=== PATIENT | female | born 1930 | race Asian ===

== ENCOUNTER 2016-10-06 19:48 | Inpatient (IN) | payer OTHER, MEDICAID ==
[~2016-10-06] VITALS: Ht 152.4 cm; Wt 49.0 kg
[2016-10-06 19:48] VITALS: BP_SYST 156
[~2016-10-06 19:48] MED LIST: ACET325T53 GT; ALBU2.5V7 INH; CEL20 GT; CHOL100035 GT; DONE10TA44 GT; GUAI5SYR PO; IPRA4AER INH; LEVE500T13 GT; PANT40SU2 GT; SIMV10TA2 GT; TORBREX LEFT EYE
[2016-10-06] MEDS ORDERED: IPRATROPIUM/ALBUTEROL SULFATE 3 ML AMPUL.NEB INH ONE ×2 (20:15→21:30)
[2016-10-06] MEDS ORDERED: NACL 0.9% 1,000 ML IV ONE (20:15)
[2016-10-06] MEDS ORDERED: ACET-2165 GT (20:26)
[2016-10-06] MEDS ORDERED: MINE3.5O OP (20:26)
[2016-10-06] MEDS ORDERED: IPRA0.2S6 INH (20:26)
[2016-10-06] MEDS ORDERED: SIMV10TA6 GT (20:26)
[2016-10-06] MEDS ORDERED: PANT20TA2 GT (20:26)
[2016-10-06] MEDS ORDERED: MELA3TAB37 GT (20:26)
[2016-10-06] MEDS ORDERED: AMIN30LI2 GT (20:26)
[2016-10-06 20:40] LABS: BASOPHILS # (AUTO) 0.1 K/uL (0.0-0.2); BASOPHILS % (AUTO) 0.8 % (0.0-2.0); EOSINOPHILS # (AUTO) 0.1 K/uL (0.0-0.4); EOSINOPHILS % (AUTO) 0.9 % (0.0-4.0); HEMATOCRIT 37.3 % (36-48); LYMPHOCYTES # (AUTO) 1.9 K/uL (1.0-5.5); LYMPHOCYTES % (AUTO) 13.5 % (20.5-51.5); MEAN CORPUSCULAR HEMOGLOBIN 34 pg (27-31); MEAN CORPUSCULAR HGB CONC 35 % (32-36); MEAN CORPUSCULAR VOLUME 99 fL (79.0-98.0); MONOCYTES # (AUTO) 0.6 K/uL (0.0-1.0); MONOCYTES % (AUTO) 4.1 % (1.7-9.3); NEUTROPHILS # (AUTO) 11.7 K/uL (1.8-7.7); NEUTROPHILS % (AUTO) 80.7 % (40.0-70.0); PLATELET COUNT (AUTO) 259 K/uL (130-430); RED BLOOD CELL COUNT(AUTO) 3.78 MIL/uL (4.2-6.2); WHITE BLOOD COUNT (AUTO) 14.4 K/uL (4.8-10.8)
[2016-10-06 20:50] LABS: ANION GAP 5 (5-15); CHLORIDE 104 mmol/L (98-107); CREATININE 0.76 mg/dL (0.55-1.30); GLUCOSE 152 mg/dL (70-99); POTASSIUM 3.6 mmol/L (3.5-5.1); SODIUM SERUM 137 mmol/L (136-145); UREA NITROGEN, BLOOD 19 mg/dL (8-21)
[2016-10-06 20:52] LABS: PROTHROMBIN TIME 10.4 SECS (9.5-12.5)
[2016-10-06 20:55] LABS: ALANINE AMINOTRANSFERASE 26 U/L (12-78); ALBUMIN 3.4 g/dL (3.4-4.8); ASPARTATE AMINOTRANSFERASE 21 U/L (10-37); TOTAL BILIRUBIN 0.4 mg/dL (0.0-1.0); TOTAL PROTEIN, SERUM 8.5 g/dL (6.4-8.3)
[2016-10-06] MEDS ORDERED: PIPERACILLIN/TAZO 3.375 GM in NS 50 ML IV ONE (21:00)
[2016-10-06] MEDS ORDERED: methylPREDNISolone SOD SUCC/PF 62.5 MG/ML VIAL IVP ONE (21:00)
[2016-10-06 21:12] LABS: BILIRUBIN,URINE NEGATIVE (NEGATIVE); BLOOD, URINE 3+ (NEGATIVE); CLARITY/URINE CLEAR (CLEAR); COLOR,URINE YELLOW (YELLOW); GLUCOSE,URINE NEGATIVE (NEGATIVE); KETONES,URINE NEGATIVE (NEGATIVE); LEUKOCYTE ESTERASE ,URINE 1+ (NEGATIVE); NITRITE, URINE NEGATIVE (NEGATIVE); PH,URINE 6.5 (5.0-8.0); PROTEIN URINE NEGATIVE (NEGATIVE)
[2016-10-06] MEDS ORDERED: NACL 0.9% 1,500 ML IV ONE (21:15)
[2016-10-06 21:17] LABS: BACTERIA,URINE FEW /HPF (None Seen); RBC,URINE 20-50 /HPF (0-3)
[2016-10-06] MEDS ORDERED: PIPERACILLIN/TAZOBACTAM 3.375 GM/VIAL (ZOSYN) IV ONE ×2 (21:31→23:56)
[2016-10-06 22:07] LABS: ABG TOTAL HEMOGLOBIN 11.5 G/dL (12.0-18.0); BLOOD GAS BASE EXCESS 0.7 mmol/L (-3.0-3.0); BLOOD GAS PH 7.403 (7.350-7.450); BLOOD O2Hb% 95.4 % (94.0-97.0)
[2016-10-06 22:08] LABS: BLOOD GAS COHb% 0.3 % (0.5-1.5); BLOOD GAS HHB 4.2 % (0.0-6.0)
[2016-10-06 22:19] VITALS: BP_SYST 137
[2016-10-06] MEDS: POTASSIUM CHLORIDE 10 MEQ in NACL 0.9% 1,000 ML IV SCH (22:30)
[2016-10-06] MEDS: IPRATROPIUM BROM 0.5 MG/2.5 ML VIAL.NEB (ATROVENT) INH SCH (23:00)
[2016-10-06] MEDS: ALBUTEROL SULFATE 0.083% 2.5 MG/3 ML VIAL.NEB INH SCH (23:00)
[2016-10-06] MEDS: ACETAMINOPHEN 650 MG/20.3 ML UDC GT PRN (23:49)
[2016-10-07] VITALS (7 sets, daily range): BP systolic 106–141
[2016-10-07] MEDS ORDERED: levETIRAcetam 500 MG TABLET PO SCH (00:15)
[2016-10-07] MEDS ORDERED: KCL 20 mEq in 100 mL (PREMIX) 100 ML IV ONE (00:16)
[2016-10-07] MEDS: POTASSIUM CHLORIDE 10 MEQ in NACL 0.9% 1,000 ML IV SCH ×2 (00:21→11:39)
[2016-10-07] MEDS: PIPERACILLIN/TAZO 3.375/DEX-IS 50 ML IV SCH ×5 (06:00→23:27)
[2016-10-07] MEDS: methylPREDNISolone SOD SUCC/PF 62.5 MG/ML VIAL IVP SCH ×3 (06:21→23:28)
[2016-10-07 07:33] LABS: BASOPHILS % (AUTO) 0.2 % (0.0-2.0); EOSINOPHILS # (AUTO) 0.5 K/uL (0.0-0.4); EOSINOPHILS % (AUTO) 2.6 % (0.0-4.0); HEMATOCRIT 28.8 % (36-48); HEMOGLOBIN 10.4 g/dL (12.0-16.0); LYMPHOCYTES # (AUTO) 0.5 K/uL (1.0-5.5); LYMPHOCYTES % (AUTO) 2.5 % (20.5-51.5); MEAN CORPUSCULAR HEMOGLOBIN 36 pg (27-31); MEAN CORPUSCULAR HGB CONC 36 % (32-36); MEAN CORPUSCULAR VOLUME 99 fL (79.0-98.0); MONOCYTES # (AUTO) 0.2 K/uL (0.0-1.0); MONOCYTES % (AUTO) 0.9 % (1.7-9.3); NEUTROPHILS # (AUTO) 18.6 K/uL (1.8-7.7); NEUTROPHILS % (AUTO) 93.8 % (40.0-70.0); PLATELET COUNT (AUTO) 275 K/uL (130-430); RED BLOOD CELL COUNT(AUTO) 2.91 MIL/uL (4.2-6.2); RED CELL DISTRIBUTION WIDTH 11.5 % (9.0-15.0); WHITE BLOOD COUNT (AUTO) 19.8 K/uL (4.8-10.8)
[2016-10-07 07:40] LABS: ANION GAP 11 (5-15); CHLORIDE 106 mmol/L (98-107); CREATININE 0.83 mg/dL (0.55-1.30); GLUCOSE 264 mg/dL (70-99); POTASSIUM 4.1 mmol/L (3.5-5.1); SODIUM SERUM 138 mmol/L (136-145); UREA NITROGEN, BLOOD 16 mg/dL (8-21)
[2016-10-07] MEDS: IPRATROPIUM BROM 0.5 MG/2.5 ML VIAL.NEB (ATROVENT) INH SCH ×4 (07:50→21:02)
[2016-10-07] MEDS: ALBUTEROL SULFATE 0.083% 2.5 MG/3 ML VIAL.NEB INH SCH ×4 (08:11→21:01)
[2016-10-07] MEDS ORDERED: NON-FORMULARY MEDICATION (Pantoprazole (Protonix) 40 MG) GT SCH (09:00)
[2016-10-07] MEDS: CHOLECALCIFEROL (VITAMIN D3) 2,000 UNIT TABLET GT SCH (09:34)
[2016-10-07] MEDS: levETIRAcetam 500 MG TABLET GT SCH ×2 (09:34→21:00)
[2016-10-07] MEDS: DONEPEZIL HCL 5 MG TABLET (ARICEPT) GT SCH (09:34)
[2016-10-07] MEDS: PANTOPRAZOLE GRANULES PACKET 40 MG GT SCH (09:34)
[2016-10-07] MEDS: MINERAL OIL/PETROLATUM,WHITE 3.5 GM EYE OINT. OP SCH (09:35)
[2016-10-07] MEDS: 0.45% NACL 1,000 ML IV SCH (15:25)
[2016-10-07] MEDS: ACETAMINOPHEN 650 MG/20.3 ML UDC GT PRN ×2 (16:49→23:28)
[2016-10-07] MEDS: CITALOPRAM HYDROBROMIDE 20 MG TABLET GT SCH (20:59)
[2016-10-07] MEDS ORDERED: NON-FORMULARY MEDICATION (Melatonin 2 TAB) GT SCH (21:00)
[2016-10-07] MEDS: LACTOBACILLUS RHAMNOSUS GG 1 CAP CAPSULE PO SCH (21:00)
[2016-10-08] VITALS (7 sets, daily range): BP systolic 124–159
[2016-10-08] MEDS: ALBUTEROL SULFATE 0.083% 2.5 MG/3 ML VIAL.NEB INH SCH ×7 (03:06→22:50)
[2016-10-08] MEDS: IPRATROPIUM BROM 0.5 MG/2.5 ML VIAL.NEB (ATROVENT) INH SCH ×7 (03:07→22:50)
[2016-10-08] MEDS: PIPERACILLIN/TAZO 3.375/DEX-IS 50 ML IV SCH ×2 (05:40→11:24)
[2016-10-08] MEDS: methylPREDNISolone SOD SUCC/PF 62.5 MG/ML VIAL IVP SCH ×3 (06:11→21:39)
[2016-10-08 07:06] LABS: BASOPHILS % (AUTO) 0.1 % (0.0-2.0); HEMATOCRIT 29.6 % (36-48); HEMOGLOBIN 10.1 g/dL (12.0-16.0); LYMPHOCYTES # (AUTO) 0.5 K/uL (1.0-5.5); LYMPHOCYTES % (AUTO) 2.8 % (20.5-51.5); MEAN CORPUSCULAR HEMOGLOBIN 34 pg (27-31); MEAN CORPUSCULAR HGB CONC 34 % (32-36); MEAN CORPUSCULAR VOLUME 99 fL (79.0-98.0); MONOCYTES # (AUTO) 0.8 K/uL (0.0-1.0); MONOCYTES % (AUTO) 5.2 % (1.7-9.3); NEUTROPHILS # (AUTO) 14.9 K/uL (1.8-7.7); NEUTROPHILS % (AUTO) 91.9 % (40.0-70.0); PLATELET COUNT (AUTO) 203 K/uL (130-430); RED BLOOD CELL COUNT(AUTO) 2.99 MIL/uL (4.2-6.2); RED CELL DISTRIBUTION WIDTH 11.8 % (9.0-15.0); WHITE BLOOD COUNT (AUTO) 16.3 K/uL (4.8-10.8)
[2016-10-08 07:31] LABS: ALANINE AMINOTRANSFERASE 67 U/L (12-78); ALBUMIN 2.8 g/dL (3.4-4.8); ANION GAP 7 (5-15); ASPARTATE AMINOTRANSFERASE 95 U/L (10-37); CALCIUM 8.2 mg/dL (8.4-11.0); CHLORIDE 104 mmol/L (98-107); GLUCOSE 198 mg/dL (70-99); POTASSIUM 4.2 mmol/L (3.5-5.1); SODIUM SERUM 136 mmol/L (136-145); TOTAL BILIRUBIN 0.3 mg/dL (0.0-1.0); TOTAL PROTEIN, SERUM 7.2 g/dL (6.4-8.3); UREA NITROGEN, BLOOD 17 mg/dL (8-21)
[2016-10-08] MEDS: PANTOPRAZOLE GRANULES PACKET 40 MG GT SCH (08:59)
[2016-10-08] MEDS: LACTOBACILLUS RHAMNOSUS GG 1 CAP CAPSULE PO SCH ×2 (09:00→21:38)
[2016-10-08] MEDS: levETIRAcetam 500 MG TABLET GT SCH ×2 (09:00→21:38)
[2016-10-08] MEDS: DONEPEZIL HCL 5 MG TABLET (ARICEPT) GT SCH (09:00)
[2016-10-08] MEDS: CHOLECALCIFEROL (VITAMIN D3) 2,000 UNIT TABLET GT SCH (09:01)
[2016-10-08] MEDS: MINERAL OIL/PETROLATUM,WHITE 3.5 GM EYE OINT. OP SCH (09:01)
[2016-10-08] MEDS: metroNIDAZOLE 250 mg/NS 50 ML IV SCH ×2 (13:54→21:39)
[2016-10-08] MEDS ORDERED: FUROSEMIDE 20 MG/2 ML VIAL IVP ONE (15:15)
[2016-10-08] MEDS: 0.45% NACL 1,000 ML IV SCH (15:24)
[2016-10-08] MEDS: CITALOPRAM HYDROBROMIDE 20 MG TABLET GT SCH (21:38)
[2016-10-08] MEDS: CEFEPIME 1 GM in D5W 50 ML IV SCH (21:41)
[2016-10-09 03:46] VITALS: BP_SYST 141
[2016-10-09] MEDS: ALBUTEROL SULFATE 0.083% 2.5 MG/3 ML VIAL.NEB INH SCH ×6 (03:58→23:29)
[2016-10-09] MEDS: IPRATROPIUM BROM 0.5 MG/2.5 ML VIAL.NEB (ATROVENT) INH SCH ×6 (03:58→23:29)
[2016-10-09] MEDS: methylPREDNISolone SOD SUCC/PF 62.5 MG/ML VIAL IVP SCH ×3 (05:27→22:38)
[2016-10-09] MEDS: metroNIDAZOLE 250 mg/NS 50 ML IV SCH ×3 (05:28→22:39)
[2016-10-09 06:53] LABS: HEMATOCRIT 31.6 % (36-48); HEMOGLOBIN 11.1 g/dL (12.0-16.0); MEAN CORPUSCULAR HEMOGLOBIN 35 pg (27-31); MEAN CORPUSCULAR HGB CONC 35 % (32-36); MEAN CORPUSCULAR VOLUME 99 fL (79.0-98.0); PLATELET COUNT (AUTO) 205 K/uL (130-430); RED CELL DISTRIBUTION WIDTH 11.3 % (9.0-15.0); WHITE BLOOD COUNT (AUTO) 19.5 K/uL (4.8-10.8)
[2016-10-09 07:07] LABS: ANION GAP 7 (5-15); CALCIUM 8.4 mg/dL (8.4-11.0); CHLORIDE 98 mmol/L (98-107); CREATININE 0.65 mg/dL (0.55-1.30); GLUCOSE 216 mg/dL (70-99); POTASSIUM 4.1 mmol/L (3.5-5.1); SODIUM SERUM 136 mmol/L (136-145); UREA NITROGEN, BLOOD 17 mg/dL (8-21)
[2016-10-09 08:20] VITALS: BP_SYST 166
[2016-10-09] MEDS: PANTOPRAZOLE GRANULES PACKET 40 MG GT SCH (09:11)
[2016-10-09] MEDS: CEFEPIME 1 GM in D5W 50 ML IV SCH ×2 (09:11→22:39)
[2016-10-09] MEDS: DONEPEZIL HCL 5 MG TABLET (ARICEPT) GT SCH (09:12)
[2016-10-09] MEDS: LACTOBACILLUS RHAMNOSUS GG 1 CAP CAPSULE PO SCH ×2 (09:12→22:38)
[2016-10-09] MEDS: levETIRAcetam 500 MG TABLET GT SCH ×2 (09:12→22:38)
[2016-10-09] MEDS: CHOLECALCIFEROL (VITAMIN D3) 2,000 UNIT TABLET GT SCH (09:12)
[2016-10-09] MEDS: MINERAL OIL/PETROLATUM,WHITE 3.5 GM EYE OINT. OP SCH (09:13)
[2016-10-09 09:39] LABS: ATYPICAL LYMPHOCYTES % 0 % (0-0); BAND % (MANUAL) 17 % (0-6); BASOPHILS % (MANUAL) 0 % (0-2); EOSINOPHILS % (MANUAL) 0 % (0-7); LYMPHOCYTES % (MANUAL) 5 % (20-46); MONOCYTES % (MANUAL) 3 % (0-11)
[2016-10-09 11:27] VITALS: BP_SYST 144
[2016-10-09 15:34] VITALS: BP_SYST 141
[2016-10-09] MEDS ORDERED: FUROSEMIDE 20 MG/2 ML VIAL IVP ONE (17:30)
[2016-10-09 20:00] VITALS: BP_SYST 135
[2016-10-09] MEDS: CITALOPRAM HYDROBROMIDE 20 MG TABLET GT SCH (22:38)
[2016-10-10] VITALS (7 sets, daily range): BP systolic 127–157
[2016-10-10] MEDS: IPRATROPIUM BROM 0.5 MG/2.5 ML VIAL.NEB (ATROVENT) INH SCH ×6 (02:05→23:11)
[2016-10-10] MEDS: ALBUTEROL SULFATE 0.083% 2.5 MG/3 ML VIAL.NEB INH SCH ×6 (02:05→23:11)
[2016-10-10] MEDS: metroNIDAZOLE 250 mg/NS 50 ML IV SCH ×3 (05:22→21:49)
[2016-10-10] MEDS: methylPREDNISolone SOD SUCC/PF 62.5 MG/ML VIAL IVP SCH ×3 (05:22→21:49)
[2016-10-10 07:08] LABS: EOSINOPHILS % (AUTO) 0.1 % (0.0-4.0); HEMATOCRIT 33.8 % (36-48); HEMOGLOBIN 11.8 g/dL (12.0-16.0); LYMPHOCYTES # (AUTO) 0.5 K/uL (1.0-5.5); MEAN CORPUSCULAR HEMOGLOBIN 35 pg (27-31); MEAN CORPUSCULAR HGB CONC 35 % (32-36); MEAN CORPUSCULAR VOLUME 100 fL (79.0-98.0); MONOCYTES # (AUTO) 0.5 K/uL (0.0-1.0); MONOCYTES % (AUTO) 2.9 % (1.7-9.3); NEUTROPHILS # (AUTO) 16.3 K/uL (1.8-7.7); PLATELET COUNT (AUTO) 201 K/uL (130-430); RED CELL DISTRIBUTION WIDTH 11.4 % (9.0-15.0); WHITE BLOOD COUNT (AUTO) 17.3 K/uL (4.8-10.8)
[2016-10-10 07:21] LABS: ANION GAP 5 (5-15); CALCIUM 8.6 mg/dL (8.4-11.0); CHLORIDE 96 mmol/L (98-107); CREATININE 0.75 mg/dL (0.55-1.30); GLUCOSE 287 mg/dL (70-99); POTASSIUM 4.1 mmol/L (3.5-5.1); SODIUM SERUM 135 mmol/L (136-145); UREA NITROGEN, BLOOD 25 mg/dL (8-21)
[2016-10-10] MEDS: CEFEPIME 1 GM in D5W 50 ML IV SCH ×2 (09:10→21:09)
[2016-10-10] MEDS: levETIRAcetam 500 MG TABLET GT SCH ×2 (09:10→21:09)
[2016-10-10] MEDS: PANTOPRAZOLE GRANULES PACKET 40 MG GT SCH (09:10)
[2016-10-10] MEDS: LACTOBACILLUS RHAMNOSUS GG 1 CAP CAPSULE PO SCH ×2 (09:10→21:09)
[2016-10-10] MEDS: CHOLECALCIFEROL (VITAMIN D3) 2,000 UNIT TABLET GT SCH (09:10)
[2016-10-10] MEDS: DONEPEZIL HCL 5 MG TABLET (ARICEPT) GT SCH (09:10)
[2016-10-10] MEDS: MINERAL OIL/PETROLATUM,WHITE 3.5 GM EYE OINT. OP SCH (09:11)
[2016-10-10 10:30] LABS: ABG TOTAL HEMOGLOBIN 12.3 G/dL (12.0-18.0); BLOOD GAS BASE EXCESS 9.6 mmol/L (-3.0-3.0); BLOOD GAS PH 7.452 (7.350-7.450); BLOOD O2Hb% 96.2 % (94.0-97.0)
[2016-10-10 10:31] LABS: BLOOD GAS COHb% 0.3 % (0.5-1.5); BLOOD GAS HHB 3.2 % (0.0-6.0)
[2016-10-10] MEDS: CITALOPRAM HYDROBROMIDE 20 MG TABLET GT SCH (21:09)
[2016-10-11] VITALS: BP_SYST 151
[2016-10-11] MEDS: methylPREDNISolone SOD SUCC/PF 62.5 MG/ML VIAL IVP SCH ×3 (06:06→21:45)
[2016-10-11] MEDS: metroNIDAZOLE 250 mg/NS 50 ML IV SCH ×3 (06:07→21:46)
[2016-10-11] MEDS: IPRATROPIUM BROM 0.5 MG/2.5 ML VIAL.NEB (ATROVENT) INH SCH ×5 (07:17→23:00)
[2016-10-11] MEDS: ALBUTEROL SULFATE 0.083% 2.5 MG/3 ML VIAL.NEB INH SCH ×5 (07:17→23:00)
[2016-10-11 07:20] LABS: BASOPHILS % (AUTO) 0.3 % (0.0-2.0); HEMATOCRIT 32.4 % (36-48); HEMOGLOBIN 11.3 g/dL (12.0-16.0); LYMPHOCYTES # (AUTO) 0.6 K/uL (1.0-5.5); LYMPHOCYTES % (AUTO) 4.4 % (20.5-51.5); MEAN CORPUSCULAR HEMOGLOBIN 34 pg (27-31); MEAN CORPUSCULAR HGB CONC 35 % (32-36); MEAN CORPUSCULAR VOLUME 99 fL (79.0-98.0); MONOCYTES # (AUTO) 0.7 K/uL (0.0-1.0); MONOCYTES % (AUTO) 5.5 % (1.7-9.3); NEUTROPHILS # (AUTO) 11.6 K/uL (1.8-7.7); NEUTROPHILS % (AUTO) 89.8 % (40.0-70.0); PLATELET COUNT (AUTO) 214 K/uL (130-430); RED BLOOD CELL COUNT(AUTO) 3.29 MIL/uL (4.2-6.2); RED CELL DISTRIBUTION WIDTH 11.3 % (9.0-15.0); WHITE BLOOD COUNT (AUTO) 12.9 K/uL (4.8-10.8)
[2016-10-11 07:46] LABS: ANION GAP 0 (5-15); CALCIUM 8.4 mg/dL (8.4-11.0); CHLORIDE 99 mmol/L (98-107); CREATININE 0.74 mg/dL (0.55-1.30); GLUCOSE 328 mg/dL (70-99); POTASSIUM 4.7 mmol/L (3.5-5.1); SODIUM SERUM 137 mmol/L (136-145); UREA NITROGEN, BLOOD 27 mg/dL (8-21)
[2016-10-11 08:02] VITALS: BP_SYST 161
[2016-10-11] MEDS: LACTOBACILLUS RHAMNOSUS GG 1 CAP CAPSULE PO SCH ×2 (09:32→20:49)
[2016-10-11] MEDS: levETIRAcetam 500 MG TABLET GT SCH ×2 (09:32→20:49)
[2016-10-11] MEDS: CHOLECALCIFEROL (VITAMIN D3) 2,000 UNIT TABLET GT SCH (09:33)
[2016-10-11] MEDS: DONEPEZIL HCL 5 MG TABLET (ARICEPT) GT SCH (09:33)
[2016-10-11] MEDS: PANTOPRAZOLE GRANULES PACKET 40 MG GT SCH (09:33)
[2016-10-11] MEDS: CEFEPIME 1 GM in D5W 50 ML IV SCH ×2 (09:33→20:49)
[2016-10-11] MEDS: MINERAL OIL/PETROLATUM,WHITE 3.5 GM EYE OINT. OP SCH (09:33)
[2016-10-11 12:41] VITALS: BP_SYST 153
[2016-10-11] MEDS ORDERED: cloNIDine HCL 0.1 MG TABLET GT PRN (14:00)
[2016-10-11 16:57] VITALS: BP_SYST 155
[2016-10-11 19:30] VITALS: BP_SYST 150
[2016-10-11 19:39] VITALS: BP_SYST 150
[2016-10-11] MEDS: CITALOPRAM HYDROBROMIDE 20 MG TABLET GT SCH (20:49)
== END 2016-10-11 23:32 | DRG 871 ==
LOC: SED 19:48 → STU 21:53 → SMU 10-08 11:43
PROVIDERS: ADMIT Internal Medicine; ATTEND Internal Medicine
PROC: 5A09457 Assistance with Respiratory Ventilation, 24-96 Consecutive Hours, Continuous Positive Airway Pressure (ICD-10-PCS; principal; 2016-10-08)
DX: A41.9 Sepsis, unspecified organism (principal); J69.0 Pneumonitis due to inhalation of food and vomit; J44.1 Chronic obstructive pulmonary disease with (acute) exacerbation; N39.0 Urinary tract infection, site not specified; D64.9 Anemia, unspecified; G40.909 Epilepsy, unspecified, not intractable, without status epilepticus; G30.9 Alzheimer's disease, unspecified; F02.80 Dementia in other diseases classified elsewhere, unspecified severity, without behavioral disturbance, psychotic disturbance, mood disturbance, and anxiety; E78.5 Hyperlipidemia, unspecified; R13.10 Dysphagia, unspecified; T38.0X5A Adverse effect of glucocorticoids and synthetic analogues, initial encounter; Z87.01 Personal history of pneumonia (recurrent); Z87.440 Personal history of urinary (tract) infections; Z93.1 Gastrostomy status; Z86.73 Personal history of transient ischemic attack (TIA), and cerebral infarction without residual deficits; Z79.899 Other long term (current) drug therapy
CPT/HCPCS: 36415; 36600; 71010; 80048; 80053; 81000-TC; 82803-TC; 83605; 83880; 84484; 85007; 85025; 85027; 85610-TC; 85730-TC; 87040-TC; 87081; 87086; 93005; 94640; 94660; 94760; 96365; 96375; 99285; J0692; J1940; J2543; J2930; J3480; J3490; J7030; J7060

== ENCOUNTER 2017-01-17 01:29 | Inpatient (IN) | payer OTHER, MEDICAID ==
[2017-01-17] VITALS (8 sets, daily range): BP systolic 134–151
[~2017-01-17] VITALS: Ht 152.4 cm; Wt 50.8 kg
[~2017-01-17 01:29] MED LIST changes: -ALBU2.5V7 INH; -GUAI5SYR PO; -IPRA4AER INH; +MELA3TAB37 GT; +MINE3.5O OP; +PANT20TA2 GT; -SIMV10TA2 GT; -TORBREX LEFT EYE
--- NOTE | 2017-01-17 01:30 | NUR ---
Placed in room 2. Placed on cardiac exercise specialist, blood pressure machine and pulse oximeter. To gown for exam. Side rails up. Report given to Davida BARKER.
--- NOTE | 2017-01-17 01:35 | NUR ---
Patient brought to ER by ALS transport from [facility] with ALOC. Per facility last known time 01/16 @ 1800 although patient is non-verbal and bedridden, patient is more altered than before. Responds to painful stimuli, does not track with eyes, PERRL, non-verbal, G-tube present, patency not verified at this time, incontinent of feces & urine, mild upper & lower extremities atrophy. Sacral area reddness and healing wound. Tachycardic, tachypneic, febrile @ 100.8.
--- NOTE | 2017-01-17 01:44 | NUR ---
ER MD Rosales at bedside evaluatign the patient.
[2017-01-17] MEDS ORDERED: LACTIN GT (01:46)
[2017-01-17] MEDS ORDERED: IPRA3AMP9 INH (01:46)
[2017-01-17] MEDS ORDERED: CAT.1 GT (01:46)
[2017-01-17] MEDS ORDERED: IPRA4AER INH (01:46)
[2017-01-17] MEDS ORDERED: MAGN400O4 GT (01:46)
--- NOTE | 2017-01-17 01:46 | NUR ---
Medication reconciliation completed with information provided by - LIST FROM FACILITY. Any prior medication reconciliation on file was reviewed and corrected.
--- NOTE | 2017-01-17 02:00 | NUR ---
Irrigator Overhead at bedside for blood draw. Patient identified.
--- NOTE | 2017-01-17 02:10 | NUR ---
# 16 FR Zuniga catheter with use of sterile technique. Immediate return of 150 cc yellow urine noted. Bedside drainage bag placed below level of bladder. Urine sample collected and sent to lab. Pt tolerated procedure well. Patient unable to toilet self.
--- NOTE | 2017-01-17 02:20 | NUR ---
Radiology at bedside with portable for chest Xray
[2017-01-17 02:28] LABS: BASOPHILS # (AUTO) 0.1 K/uL (0.0-0.2); BASOPHILS % (AUTO) 0.5 % (0.0-2.0); EOSINOPHILS # (AUTO) 0.2 K/uL (0.0-0.4); EOSINOPHILS % (AUTO) 1.2 % (0.0-4.0); HEMATOCRIT 35.3 % (36-48); HEMOGLOBIN 11.7 g/dL (12.0-16.0); LYMPHOCYTES # (AUTO) 1.9 K/uL (1.0-5.5); LYMPHOCYTES % (AUTO) 13.4 % (20.5-51.5); MEAN CORPUSCULAR HEMOGLOBIN 32 pg (27-31); MEAN CORPUSCULAR HGB CONC 33 % (32-36); MEAN CORPUSCULAR VOLUME 97 fL (79.0-98.0); MONOCYTES # (AUTO) 1.3 K/uL (0.0-1.0); MONOCYTES % (AUTO) 9.1 % (1.7-9.3); NEUTROPHILS # (AUTO) 10.4 K/uL (1.8-7.7); NEUTROPHILS % (AUTO) 75.8 % (40.0-70.0); PLATELET COUNT (AUTO) 286 K/uL (130-430); RED BLOOD CELL COUNT(AUTO) 3.63 MIL/uL (4.2-6.2); RED CELL DISTRIBUTION WIDTH 11.5 % (9.0-15.0); WHITE BLOOD COUNT (AUTO) 13.9 K/uL (4.8-10.8)
[2017-01-17 02:36] LABS: BILIRUBIN,URINE NEGATIVE (NEGATIVE); BLOOD, URINE 1+ (NEGATIVE); CLARITY/URINE HAZY (CLEAR); COLOR,URINE YELLOW (YELLOW); GLUCOSE,URINE NEGATIVE (NEGATIVE); KETONES,URINE NEGATIVE (NEGATIVE); LEUKOCYTE ESTERASE ,URINE NEGATIVE (NEGATIVE); NITRITE, URINE NEGATIVE (NEGATIVE); PROTEIN URINE 2+ (NEGATIVE); UROBILINOGEN,URINE 0.2 (0.2-1.0)
[2017-01-17 02:38] LABS: ANION GAP 4 (5-15); CHLORIDE 107 mmol/L (98-107); CREATININE 0.92 mg/dL (0.55-1.30); GLUCOSE 156 mg/dL (70-99); POTASSIUM 3.9 mmol/L (3.5-5.1); SODIUM SERUM 143 mmol/L (136-145); UREA NITROGEN, BLOOD 33 mg/dL (8-21)
--- NOTE | 2017-01-17 02:40 | NUR ---
20G IV placed by EMT. Patency verified. Flushed with 10ml NS. Dressing clean & dry.
[2017-01-17 02:43] LABS: ALANINE AMINOTRANSFERASE 22 U/L (12-78); ASPARTATE AMINOTRANSFERASE 22 U/L (10-37); CREATINE KINASE, TOTAL 58 U/L (26-192); SALICYLATE 1 mg/dL (3-30); TOTAL BILIRUBIN 0.5 mg/dL (0.0-1.0); TOTAL PROTEIN, SERUM 8.6 g/dL (6.4-8.3)
[2017-01-17 02:44] LABS: ALCOHOL, BLOOD < 3 mg/dL (<10)
[2017-01-17 02:46] LABS: PROTHROMBIN TIME 10.8 SECS (9.5-12.5)
[2017-01-17 02:48] LABS: BACTERIA,URINE FEW /HPF (None Seen); MUCUS,URINE 1+ /LPF (None Seen); URINE AMORPHOUS URATE 2+ /HPF (None Seen)
[2017-01-17 02:53] LABS: BARBITURATE, URINE NEGATIVE (NEG <=200); BENZODIAZEPINE, URINE NEGATIVE (NEG <=150); CANNABINOID, URINE NEGATIVE (NEG <=50); COCAINE, URINE NEGATIVE (NEG <=150); METHAMPHETAMINES SCREEN,URINE NEGATIVE (NEG <=500); OPIATE, URINE NEGATIVE (NEG <=100); PHENCYCLIDINE SCREEN,URINE NEGATIVE (NEG <=25); UR TRICYCLIC ANTIDEPRESSANTS NEGATIVE (NEG <=300); URINE AMPHETAMINE NEGATIVE (NEG <=500); URINE METHADONE NEGATIVE (NEG <=200); URINE OXYCODONE SCREEN NEGATIVE (NEG <=100); URINE PROPOXYPHENE SCREEN NEGATIVE (NEG <=300)
[2017-01-17 02:57] LABS: ACETAMINOPHEN < 1 ug/mL (1-30)
--- NOTE | 2017-01-17 03:01 | NUR ---
Svere SEPSIS risk. ER MD Rosales aware of VS & presentation. No orders received fro ABD and fluids.
--- NOTE | 2017-01-17 03:03 | NUR ---
All belongings sent home with family.
--- NOTE | 2017-01-17 03:59 | NUR ---
Patient will be admitted to care of Dr Cedeño. Admitted to tele unit. Will go to room 121C. Belongings list completed. Summary report printed. Report will be given at bedside.
[2017-01-17] MEDS ORDERED: cefTRIAXone 1 GM in D5W 50 ML IV ONE (04:00)
[2017-01-17] MEDS ORDERED: cefTRIAXone 1 GM VIAL ONE (04:10)
--- NOTE | 2017-01-17 04:14 | NUR ---
Transfer to [address] via ACLS protocol. Licensed nurse present. IV present no signs or symptoms of infiltration.
--- NOTE | 2017-01-17 04:23 | NUR ---
ADMISSION: The patient, WILFREDO TERAN, 86 y/o, F admitted by VINCE GUERRA MD accompanied by family, was given written information regarding hospital policies, unit procedures and contact persons. Informed family that Iveth will be her nurse. Valuables were checked and signed.
--- NOTE | 2017-01-17 04:30 | NUR ---
INITIAL ADMISSION NOTE Patient resting on the bed with eyes closed. Patient is lethargic at this time. Responsive with deep stimuli. Skin warm and dry to touch. IV intact to left wrist, no redness, no swelling, patent. F/C intact, drain gravity with yellow urine. Daughter at bedside. Discussed with daughter the safety issue, use call light when need help, and plan of care, verbally understanding. Safety measure maintained. Bed in low position, side rails up, bed alarm on. Call light within reached. Will continue to monitor.
[2017-01-17] MEDS ORDERED: POTASSIUM CHLORIDE 10 MEQ in NACL 0.9% 1,000 ML IV SCH (05:30)
[2017-01-17] MEDS ORDERED: IPRATROPIUM/ALBUTEROL SULFATE 120 PUFFS/4 GM INH INH PRN (05:30)
[2017-01-17] MEDS ORDERED: cefTRIAXone 1 GM IVPB PREMIX 50 ML IV ONE (05:30)
[2017-01-17] MEDS ORDERED: ACETAMINOPHEN 650 MG/20.3 ML UDC GT PRN (05:30)
[2017-01-17] MEDS ORDERED: KCL 20 mEq in 100 mL (PREMIX) 100 ML IV ONE (06:02)
--- NOTE | 2017-01-17 06:58 | NUR ---
CLOSING NOTE Patient resting on the bed remained eyes closed. No acute distress. Respiration even and unlabored. Skin warm and dry to touch. IV intact to left wrist, no redness, no swelling, no drainage. On NS with KCL 10mEq at 75ml/hr, infusing well. GT intact, patent, no residual. HOB is elevated. No N/V or aspiration. F/C intact, drain gravity with yellow urine. No seizure activity noted. All needs met. Hourly rounding during shift. Family at bedside. Safety measure maintained. Call light within reached. Bed in low position, bed alarm on, padded side rails up. Will endorse to morning shift nurse.
--- NOTE | 2017-01-17 07:30 | NUR ---
AM ROUNDS PT SLEEPING. PT NON-VERBAL AT THIS TIME, PT DOES REACT TO STIMULI. GTF RUNNING WELL, FC DRAINING WELL VIA GRAVITY, IVF INFUSING WELL...PT HAVING A BREATHING TREATMENT AT THIS TIME...BOWEL SOUNDS HYPOACTIVE, AUDIBLE WHEEZING NOTED..DAUGHTER AT BEDSIDE...SEIZURE PRECAUTIONS IN PLACE...BED ALARM ACTIVATED...WILL CONT TO MONITOR
[2017-01-17] MEDS: IPRATROPIUM/ALBUTEROL SULFATE 3 ML AMPUL.NEB INH SCH ×2 (07:48→13:39)
[2017-01-17] MEDS: MINERAL OIL/PETROLATUM,WHITE 3.5 GM EYE OINT. OP SCH (09:00)
--- NOTE | 2017-01-17 09:22 | NUR ---
Nutrition Update Mir Scale 18 noted. Pt admitted for pneumonia. Diet: Fibersource HN at 50 ml/hr, Free Water Flush: 40 via GT BMI: 21.9 kg/m2 RD to follow per nutrition care standards.
[2017-01-17] MEDS: PANTOPRAZOLE GRANULES PACKET 40 MG GT SCH (11:04)
[2017-01-17] MEDS: levETIRAcetam 500 MG TABLET GT SCH ×2 (11:04→21:33)
[2017-01-17] MEDS ORDERED: NS 500 ML IV ONE (11:45)
--- NOTE | 2017-01-17 12:50 | NUR ---
BOLUS STARTED..WILL MONITOR
--- NOTE | 2017-01-17 14:21 | NUR ---
RESTING WITH EYES CLOSED. GOOD CHEST RISE/FALL...WILL CONT TO MONITOR
[2017-01-17] MEDS: LEVALBUTEROL HCL 0.63 MG/3 ML VIAL.NEB INH SCH ×2 (14:30→19:38)
[2017-01-17] MEDS ORDERED: cloNIDine HCL 0.1 MG TABLET GT PRN (15:00)
--- NOTE | 2017-01-17 15:54 | NUR ---
CARDIOLOGY CONSULT CALLED TO DR MARTINEZ, RE:TACHYCARDIA. SPOKE TO CHANDAN
[2017-01-17] MEDS ORDERED: FUROSEMIDE 20 MG/2 ML VIAL IVP ONE (18:15)
[2017-01-17] MEDS ORDERED: LEVALBUTEROL HCL 0.63 MG/3 ML VIAL.NEB INH PRN (18:30)
--- NOTE | 2017-01-17 19:21 | NUR ---
ROUNDS PT RESTING. NO CHANGES..DAUGHTER AT BEDSIDE...IV LASIX GIVEN BY COVERING NURSE...FC DRAINING WELL...WILL CONT TO JUAN
--- NOTE | 2017-01-17 19:40 | NUR ---
INITIAL NOTE Patient resting on the bed with eyes closed. Aroused when called her name. Respiration even and unlabored. No acute distress. Skin warm and dry to touch. SL intact to left wrist, no redness, no swelling, patent. GT intact, patent, no residual. On GT feeding of Fibersource HN at 50ml/hr, tolerated well. HOB elevated. F/C intact, drain gravity with yellow urine. Safety measure maintained. Bed in low position, bed alarm on, padded side rails up. Call light within reached. Will continue to monitor.
[2017-01-17] MEDS: cefTRIAXone 1 GM IVPB PREMIX 50 ML IV SCH (21:33)
[2017-01-17] MEDS: CITALOPRAM HYDROBROMIDE 20 MG TABLET GT SCH (21:33)
[2017-01-17] MEDS: DONEPEZIL HCL 5 MG TABLET (ARICEPT) GT SCH (21:33)
--- NOTE | 2017-01-17 21:36 | NUR ---
SCHEDULE MEDS GIVEN Patient resting on the bed with eyes closed. Respiration even and unlabored. No acute distress. Schedule meds given. Safety measure maintained. Daughter at bedside. Call light within reached. Continue to monitor.
--- NOTE | 2017-01-17 23:57 | NUR ---
ROUND Patient resting on the bed with eyes closed. No acute distress. Respiration even and unlabored. HOB elevated. Continue on GT feeding. F/C intact, drain gravity. Safety measure maintained. Bed in low position, bed alarm on, padded side rails up. Call light within reached. Continue to monitor.
[2017-01-18] MEDS: LEVALBUTEROL HCL 0.63 MG/3 ML VIAL.NEB INH SCH ×4 (00:16→20:21)
[2017-01-18 00:28] VITALS: BP_SYST 135
--- NOTE | 2017-01-18 02:50 | NUR ---
ROUND Patient sleeping comfortable. Respiration even and unlabored. No acute distress. HOB elevated. Continue on GT feeding of Fibersource HN at 50ml/hr, tolerated well. F/C intact, drain gravity. Family at bedside. Safety measure maintained. Bed in low position, bed alarm on, side rails up. Call light within reached. [place] to monitor.
[2017-01-18 04:00] VITALS: BP_SYST 137
--- NOTE | 2017-01-18 04:17 | NUR ---
ROUND Patient sleeping comfortable. Respiration even and unlabored. No acute distress. HOB elevated. Continue on GT feeding, tolerated well. F/C intact, drain gravity. Family at bedside. Safety measure maintained. Bed in low position, bed alarm on, side rails up. Call light within reached. Continue to monitor.
--- NOTE | 2017-01-18 05:20 | NUR ---
ROUND Patient remained sleeping. No acute distress. Respiration even and unlabored. HOB elevated. Continue on GT feeding. F/C intact, drain gravity. Safety measure maintained. Call light within reached. Bed in low position, bed alarm on, side rails up. Continue to monitor.
[2017-01-18 06:33] LABS: BASOPHILS # (AUTO) 0.1 K/uL (0.0-0.2); BASOPHILS % (AUTO) 0.4 % (0.0-2.0); EOSINOPHILS # (AUTO) 0.3 K/uL (0.0-0.4); HEMATOCRIT 33.4 % (36-48); HEMOGLOBIN 11.2 g/dL (12.0-16.0); LYMPHOCYTES # (AUTO) 1.2 K/uL (1.0-5.5); LYMPHOCYTES % (AUTO) 8.6 % (20.5-51.5); MEAN CORPUSCULAR HEMOGLOBIN 33 pg (27-31); MEAN CORPUSCULAR HGB CONC 34 % (32-36); MEAN CORPUSCULAR VOLUME 99 fL (79.0-98.0); MONOCYTES # (AUTO) 0.8 K/uL (0.0-1.0); NEUTROPHILS # (AUTO) 11.3 K/uL (1.8-7.7); PLATELET COUNT (AUTO) 250 K/uL (130-430); RED BLOOD CELL COUNT(AUTO) 3.39 MIL/uL (4.2-6.2); RED CELL DISTRIBUTION WIDTH 11.6 % (9.0-15.0); WHITE BLOOD COUNT (AUTO) 13.7 K/uL (4.8-10.8)
--- NOTE | 2017-01-18 06:52 | NUR ---
LOSING NOTE Patient resting on the bed with eyes closed. No acute distress. Respiration even and unlabored. Skin warm and dry to touch. IV intact to left wrist, no redness, no swelling. GT intact, patent, no residual. HOB elevated all the time. No N/V or aspiration noted. F/C intact, drain gravity with yellow urine. No seizure activity noted. All needs met. Hourly rounding during shift. Family at bedside. Safety measure maintained. Call light within reached. Bed in low position, bed alarm on, padded side rails up. Will endorse to morning shift nurse.
[2017-01-18 07:05] LABS: ALANINE AMINOTRANSFERASE 19 U/L (12-78); ALBUMIN 2.8 g/dL (3.4-4.8); ANION GAP 5 (5-15); ASPARTATE AMINOTRANSFERASE 18 U/L (10-37); CALCIUM 8.9 mg/dL (8.4-11.0); CHLORIDE 108 mmol/L (98-107); CREATININE 0.86 mg/dL (0.55-1.30); FREE T4 (FREE THYROXINE) 0.8 ng/dL (0.6-1.6); GLUCOSE 201 mg/dL (70-99); POTASSIUM 3.6 mmol/L (3.5-5.1); SODIUM SERUM 144 mmol/L (136-145); THYROID STIMULATING HORMONE 1.48 uIu/mL (0.34-4.82); TOTAL BILIRUBIN 0.3 mg/dL (0.0-1.0); TOTAL PROTEIN, SERUM 8.1 g/dL (6.4-8.3); UREA NITROGEN, BLOOD 26 mg/dL (8-21)
--- NOTE | 2017-01-18 07:30 | NUR ---
AM ROUNDS PT SLEEPING, AUDIBLE WHEEZING NOTED, HL TO LW FLUSHES WELL...GTF RUNNING WELL AND TOLERATING WELL...FC DRAINING WELL VIA GRAVITY...DAUGHTER AT BEDSIDE...WILL CONT TO MONITOR
[2017-01-18] MEDS ORDERED: DILTIAZEM HCL 120 MG CAP.SR.24H PO ONE (09:45)
[2017-01-18] MEDS: PANTOPRAZOLE GRANULES PACKET 40 MG GT SCH (10:03)
[2017-01-18] MEDS: ASPIRIN 81 MG TAB.CHEW JT SCH (10:03)
[2017-01-18] MEDS: levETIRAcetam 500 MG TABLET GT SCH ×2 (10:03→21:35)
--- NOTE | 2017-01-18 10:03 | NUR ---
NEUROLOGY CONSULT CALLED TO DR Ella ALCALA, RE: BHAVANI. LEFT Ilda VM TO [phone] Addendum: 01/18/17 at 1013 by Loretta Henson MT/ CALLED DR Ella ALCALA'S OFFICE AGAIN. SPOKE TO ANAIS RE: BHAVANI
[2017-01-18] MEDS: MINERAL OIL/PETROLATUM,WHITE 3.5 GM EYE OINT. OP SCH (10:09)
--- NOTE | 2017-01-18 10:42 | NUR ---
ROUNDS PT RESTING...NO CHANGES...NEW ORDER FOR BP MEDICATION GIVEN...WILL CONT TO MONITOR
[2017-01-18 10:55] VITALS: BP_SYST 182
--- NOTE | 2017-01-18 11:30 | NUR ---
ASSUMED CARE ASSUMED CARE OF PT D/T STAFFING CHANGES. RECEIVED REPORT FROM DELILAH CASTELAN. INSTRODUCED SELF TO PT AND FAMILY. WHITE BOARD UPDATED WITH MY CONTACT INFORMATION. FULL ASSESSMENT DONE. VSS. PT IS STABLE- NO ACUTE DISTRESS. POC DISCUSSED. ENCOURAGED PT AND FAMILY TO CALL ME WITH ANY NEEDS.
--- NOTE | 2017-01-18 12:16 | NUR ---
ENDORSED CARE TO MJ MEJIA
--- NOTE | 2017-01-18 13:00 | NUR ---
RN ROUNDS PT RESTING WITH EYES CLOSED, CHEST RISING AND FALLING. NO NONVERBAL INDICATION OF DISCOMFORT NOTED. SON EDY IS AT BESIDE. ENC TO CALL ME WITH ANY NEEDS
[2017-01-18 13:13] VITALS: BP_SYST 169
[2017-01-18 16:00] VITALS: BP_SYST 142
--- NOTE | 2017-01-18 16:40 | NUR ---
CONSTIPATION PT HAS NOT HAD BM X2 DAYS. ADMIN MOM ORDERED. PT TYLER WELL. DTR IS AT BEDSIDE. ENC TO CALL ME WITH ANY NEEDS
[2017-01-18] MEDS: MILK OF MAGNESIA 30 ML UDC GT PRN (16:41)
--- NOTE | 2017-01-18 18:50 | NUR ---
CLOSING NOTES PT RESTING IN BED. ALL NEEDS MET. HOURLY ROUNDS OBSERVED THROUGHOUT SHIFT. WILL ENDORSE REPORT TO NOC SHIFT NURSE.
--- NOTE | 2017-01-18 19:20 | NUR ---
CHANGE OF SHIFT: pt. unresponsive only to deep stimuli, non verbal, pt. came in for altered level of conciousness. not following any commands. warm to touch and pretty moist skin, will freshen up and cool pt. later. pt. daughter at bedside. IV lock on left hand. G tube feed with Fibersource @ 50 ml/hr.on cardiac cath technician and shows sinus tach. on room air, pulse ox reading @ 93 %. HOB elevated.
--- NOTE | 2017-01-18 21:00 | NUR ---
NOTES: complete bath given by ROSI Fernandez, repositioned pt. oral care and suctioned pt. , sounds slightly gurgly. checked g tube , no residual. with [place] cath to OSD. pt. afebrile. will continue to observe and monitor.
[2017-01-18 21:30] VITALS: BP_SYST 160
[2017-01-18] MEDS: DONEPEZIL HCL 5 MG TABLET (ARICEPT) GT SCH (21:35)
[2017-01-18] MEDS: CITALOPRAM HYDROBROMIDE 20 MG TABLET GT SCH (21:35)
[2017-01-18] MEDS: cefTRIAXone 1 GM IVPB PREMIX 50 ML IV SCH (21:36)
--- NOTE | 2017-01-18 22:00 | NUR ---
NOTES: scheduled meds given via g tube and IV antibiotic. condition guarded. pt. daughter came back. call light within reach, instructed daughter to call if help needed and verbalized understanding.
[2017-01-19] VITALS (9 sets, daily range): BP systolic 93–148
--- NOTE | 2017-01-19 00:30 | NUR ---
NOTES: pt. noted to be slight congested upper airway, O2 sat 93-94%. pt. has schedule breathing treatment , no fluid overload since there is no IVF except IV antibiotic and tube feeding. will monitor and have RT to give treatment.
[2017-01-19] MEDS: LEVALBUTEROL HCL 0.63 MG/3 ML VIAL.NEB INH SCH ×4 (01:12→20:16)
--- NOTE | 2017-01-19 02:30 | NUR ---
NOTES: pt. sleeping when checked, in no acute distress. remains sinus tach borderline sinus rhythm. condition observed. daughter at bedside.
--- NOTE | 2017-01-19 04:00 | NUR ---
NOTES: repositioned, no bowel movement, skin feels warm but afebrile. in no acute distress.
--- NOTE | 2017-01-19 05:30 | NUR ---
NOTES: pt. repositioned. checked G tune , no residual, site clean with dressing. pt. sounds congested, suctioned orally with thick creamy secretions, pt. able to cough.oral care done.
--- NOTE | 2017-01-19 06:41 | NUR ---
CLOSING NOTES: pt. still asleep, respond only on deep stimulation, eyes always remains closed. IV site changed dressing. G tube intact and washing[place] cath in place. needs further and assistance. HOB keep elevated. pt. daughter at bedside sleeping.
--- NOTE | 2017-01-19 07:30 | NUR ---
endorse dpt. to incoming shift with nurse Burns. for further care.
--- NOTE | 2017-01-19 08:00 | NUR ---
AM Initial Notes Pt with eyes closed, non responsive, moves with stimuli especially when suctioned. No signs of facial grimacing for pain or discomfort. No sob, difficulty breathing or distress noted. monitor tech in place. G-tube in place with no residual noted. Fibersource feeding @ 50cc infusing. Seizure, fall and safety precautions enforced. Zuniga catheter in place. Repositioned and kept comfortable. Daughter at bedside. Will monitor.
[2017-01-19] MEDS ORDERED: DILTIAZEM HCL 120 MG CAP.SR.24H PO SCH (09:00)
[2017-01-19] MEDS: levETIRAcetam 500 MG TABLET GT SCH ×2 (10:26→21:54)
[2017-01-19] MEDS: PANTOPRAZOLE GRANULES PACKET 40 MG GT SCH (10:26)
[2017-01-19] MEDS: ASPIRIN 81 MG TAB.CHEW JT SCH (10:26)
[2017-01-19] MEDS: MINERAL OIL/PETROLATUM,WHITE 3.5 GM EYE OINT. OP SCH (10:28)
[2017-01-19] MEDS ORDERED: DILTIAZEM HCL 180 MG CAP.SR.24H PO ONE (10:45)
--- NOTE | 2017-01-19 11:00 | NUR ---
Rounds Pt still has eyes closed and never opens eyes since start of shift. No facial grimacing for pain or discomfort. No distress noted. Pt was suctioned by respiratory therapist. Repositioned and kept comfortable. Will monitor.
--- NOTE | 2017-01-19 12:34 | NUR ---
Wound Evaluation: Wound Consult ordered for Low Mir Score. Patient evaluated for a low Mir score of 11. Patient was not awake and will only repsond to touch and painful stimuli but does not open eyes. Patient received in a [facility] Bed without and air mattress. Patient has Gtube site, that is clean dry and intact. Patient needs to be turned in bed. Skin is intact. Recommend reposition patient side to side only every 2 hours with pillow support. Elevate, off-load and float bilateral heels with pillows. Offload pressure areas with pillows for pressure re-distribution. Perform skin care and monitor skin integrity Q shift. Use moisture barrier cream on moisture susceptible areas QID and PRN for soiling. Place patient on a low air-loss mattress. Will continue to follow as a Mir.
--- NOTE | 2017-01-19 14:30 | NUR ---
Rounds Pt asleep. No significant changes noted. Repositioned and kept comfortable. Will monitor.
--- NOTE | 2017-01-19 17:00 | NUR ---
NOTES Patient sleeping with no acute distress noted. Sinus tach borderline sinus rhythm in the monitor. Repositioned and kept comfortable. Daughter at bedside.
--- NOTE | 2017-01-19 18:30 | NUR ---
Closing Notes Pt appears sleeping with eyes closed. No distress noted. Repositioned and kept comfortable. Will endorse care to incoming nurse.
--- NOTE | 2017-01-19 20:00 | NUR ---
Initial note Received lying in bed with eyes closed, non verbal. Daughter at bedside. Responds to painful stimuli, but does not open eyes. No s/s of pain or discomfort. No s/s of shortness of breath. Left hand 22 gauge saline lock intact & patent. G-tube site intact with dressing clean, dry & intact. On Fibersource @ 40 cc/hr. No residual noted. Zuniga catheter intact & patent draining stef urine. Repositioned with pillow support, offloaded heels with pillows. HOB kept elevated. Fall/seizure precautions in place. Bed alarm on.
[2017-01-19] MEDS: DONEPEZIL HCL 5 MG TABLET (ARICEPT) GT SCH (21:54)
[2017-01-19] MEDS: CITALOPRAM HYDROBROMIDE 20 MG TABLET GT SCH (21:54)
[2017-01-19] MEDS: cefTRIAXone 1 GM IVPB PREMIX 50 ML IV SCH (21:54)
--- NOTE | 2017-01-19 21:54 | NUR ---
Medication Due medications administered as ordered. Tolerated medications via g-tube well. Flushed g-tube with 40 cc water.
[2017-01-19] MEDS: MILK OF MAGNESIA 30 ML UDC GT PRN (22:21)
--- NOTE | 2017-01-19 22:21 | NUR ---
Constipation Daughter stated patient had not had a bowel movement for two days. MOM given as ordered.
[2017-01-20] VITALS (7 sets, daily range): BP systolic 119–131
--- NOTE | 2017-01-20 00:30 | NUR ---
Rounds Resting quietly, no apparent distress. Remains non-verbal, responsive to painful stimuli. No respiratory distress noted. Tolerating g-tube feeding. HOB kept elevated. Turned and repositioned with pillow support. Fall/seizure precautions in place. Call light within reach. Bed alarm on.
[2017-01-20] MEDS: LEVALBUTEROL HCL 0.63 MG/3 ML VIAL.NEB INH SCH ×3 (00:45→13:32)
--- NOTE | 2017-01-20 06:15 | NUR ---
Bowel movement Had small semi-liquid stool. Perineal care given by CAUSTIC LIQUOR MAKER. Turned and repositioned with pillow support. Heels offloaded with pillows.
[2017-01-20 06:36] LABS: BASOPHILS # (AUTO) 0.1 K/uL (0.0-0.2); BASOPHILS % (AUTO) 0.6 % (0.0-2.0); EOSINOPHILS # (AUTO) 0.6 K/uL (0.0-0.4); EOSINOPHILS % (AUTO) 4.3 % (0.0-4.0); HEMATOCRIT 32.2 % (36-48); HEMOGLOBIN 10.8 g/dL (12.0-16.0); LYMPHOCYTES # (AUTO) 1.2 K/uL (1.0-5.5); MEAN CORPUSCULAR HEMOGLOBIN 33 pg (27-31); MEAN CORPUSCULAR HGB CONC 34 % (32-36); MEAN CORPUSCULAR VOLUME 100 fL (79.0-98.0); MONOCYTES # (AUTO) 1.2 K/uL (0.0-1.0); MONOCYTES % (AUTO) 8.7 % (1.7-9.3); NEUTROPHILS # (AUTO) 10.4 K/uL (1.8-7.7); NEUTROPHILS % (AUTO) 77.4 % (40.0-70.0); PLATELET COUNT (AUTO) 252 K/uL (130-430); RED BLOOD CELL COUNT(AUTO) 3.24 MIL/uL (4.2-6.2); RED CELL DISTRIBUTION WIDTH 11.6 % (9.0-15.0); WHITE BLOOD COUNT (AUTO) 13.5 K/uL (4.8-10.8)
[2017-01-20 06:52] LABS: ANION GAP 2 (5-15); CALCIUM 8.9 mg/dL (8.4-11.0); CHLORIDE 110 mmol/L (98-107); CREATININE 0.79 mg/dL (0.55-1.30); GLUCOSE 187 mg/dL (70-99); POTASSIUM 3.8 mmol/L (3.5-5.1); SODIUM SERUM 145 mmol/L (136-145); UREA NITROGEN, BLOOD 28 mg/dL (8-21)
--- NOTE | 2017-01-20 07:00 | NUR ---
Closing note Resting quietly, no apparent distress. No s/s of pain or discomfort. No shortness of breath noted. Tolerating g-tube feeding with no residual noted. HOB kept elevated. Turned and repositioned with pillow support. Call light within reach. Fall/seizure precautions in place. Daughter at bedside.
--- NOTE | 2017-01-20 07:35 | NUR ---
AM ROUNDS PATIENT RESTING IN BED, AWAKE, ALERT AND ORIENTED X1, PATIENT DOES NOT OPEN EYES AND RESPONDS TO LIGHT STIMULI, THIS IS PATIENT'S BASELINE NOW ACCORDING TO THE PATIENT'S DAUGHTER WHO IS AT THE BEDSIDE, NO SIGNS OF PAIN NOTED, ASSESSMENT COMPLETE, PATIENT HAS CONTRACTED LEFT ARM AND BILATERAL LOWER LEGS, BED IN LOWEST POSITION, THREE SIDE RAILS UP, BED ALARM ON, BED CLOSE TO NURSE'S STATION, EDUCATED THE DAUGHTER ENGINEER CHIEF LIGHT SYSTEM AND TO CALL FOR ANY ASSISTANCE, DAUGHTER VERBALIZED UNDERSTANDING, FALL, ASPIRATION AND SEIZURE PRECAUTIONS IN PLACE.
[2017-01-20] MEDS ORDERED: DILTIAZEM HCL 180 MG CAP.SR.24H PO SCH (09:00)
[2017-01-20] MEDS: PANTOPRAZOLE GRANULES PACKET 40 MG GT SCH (09:06)
[2017-01-20] MEDS: levETIRAcetam 500 MG TABLET GT SCH (09:06)
[2017-01-20] MEDS: MINERAL OIL/PETROLATUM,WHITE 3.5 GM EYE OINT. OP SCH (09:07)
[2017-01-20] MEDS: ASPIRIN 81 MG TAB.CHEW JT SCH (09:07)
--- NOTE | 2017-01-20 09:10 | NUR ---
RN ROUNDS/MEDICATION PATIENT RESTING IN BED, EYES CLOSED, BREATHING IS EVEN AND UNLABORED, EDUCATED THE FAMILY ON MEDICATIONS AND POTENTIAL SIDE EFFECTS, PATIENT DAUGHTER VERBALIZED UNDERSTANDING, G TUBE SITE IS INTACT, NO RESIDUAL OUTPUT NOTED, FLUSHES WELL, PATIENT TOLERATED WELL, PATIENT TOLERATING G TUBE FEEDING WELL, ASPIRATION PRECAUTIONS IN PLACE, BED IN LOWEST POSITION, THREE SIDE RAILS UP, BED ALARM ON, BED CLOSE TO NURSE'S STATION, FALL AND SEIZURE PRECAUTIONS IN PLACE.
--- NOTE | 2017-01-20 10:55 | NUR ---
DR LANE ROUNDS FOR DR GUERRA TODAY, STATED OK TO DISCHARGE THE PATIENT BACK TO [facility].
--- NOTE | 2017-01-20 11:09 | NUR ---
DC PLANNING: RECEIVED DC ORDER FROM . FAXED CLINICALS TO [facility] TEL# [phone];FAX# [phone]. WILL F/U. Addendum: 01/20/17 at 1246 by Ambar Burks RN [facility] ACCEPTED THE PT TO ROOM# 109 C, ARRANGED TRANSPORTATION VIA [facility] TEL# [phone], MEDICAL EDUCATION MANAGER TIME 1530. FAMILY AT BEDSIDE AGREEABLE TO THE DC PLAN. PLS GIVE REPORT TO RN TEL# [phone]. URSULA BARKER INFORMED. PACKET AT THE NURSE'S STATION.
--- NOTE | 2017-01-20 11:58 | NUR ---
RN ROUNDS PATIENT RESTING IN BED, EYES CLOSED, BREATHING IS EVEN AND UNLABORED, NO SIGNS OF DISTRESS, FAMILY AT BEDSIDE, CALL LIGHT NEAR THE PATIENT'S HAND, BED IN LOWEST POSITION, THREE SIDE RAILS UP, BED ALARM ON, BED CLOSE TO NURSE'S STATION, FALL, ASPIRATION AND SEIZURE PRECAUTIONS IN PLACE.
[2017-01-20] MEDS: cefTRIAXone 1 GM IVPB PREMIX 50 ML IV SCH (13:40)
--- NOTE | 2017-01-20 16:50 | NUR ---
PT TRANSFERRED Report given to MJ RIOS at [facility]. Transfer packet with Transfer Orders and Medication Reconciliation form given to EMT with report. Exitcare provided. [facility] ID band removed, replaced with ID band with pt's name and . All belongings sent with patient. Patient left floor via gurney escorted by EMT in no distress.
== END 2017-01-20 16:50 | DRG 177 ==
LOC: SED 01:29 → STU 04:09 → SMU 01-20 11:14
PROVIDERS: ADMIT Internal Medicine; ATTEND Internal Medicine
DX: J69.0 Pneumonitis due to inhalation of food and vomit (principal); G93.41 Metabolic encephalopathy; N39.0 Urinary tract infection, site not specified; E46 Unspecified protein-calorie malnutrition; I69.354 Hemiplegia and hemiparesis following cerebral infarction affecting left non-dominant side; G40.909 Epilepsy, unspecified, not intractable, without status epilepticus; G30.9 Alzheimer's disease, unspecified; F02.80 Dementia in other diseases classified elsewhere, unspecified severity, without behavioral disturbance, psychotic disturbance, mood disturbance, and anxiety; D71 Functional disorders of polymorphonuclear neutrophils; E78.5 Hyperlipidemia, unspecified; J44.9 Chronic obstructive pulmonary disease, unspecified; K21.9 Gastro-esophageal reflux disease without esophagitis; D64.9 Anemia, unspecified; Z79.899 Other long term (current) drug therapy; Z93.1 Gastrostomy status; Z74.01 Bed confinement status; Z68.21 Body mass index [BMI] 21.0-21.9, adult; Z87.01 Personal history of pneumonia (recurrent); Z86.73 Personal history of transient ischemic attack (TIA), and cerebral infarction without residual deficits
CPT/HCPCS: 36415; 70450-TC; 71010; 80048; 80053; 80307; 81000-TC; 82550-TC; 83605; 84439; 84443-TC; 84484; 85025; 85610-TC; 85730-TC; 87040-TC; 87081; 93005; 93306; 94640; 94760; 96365; 99285; G0480; G0481; G0482; J0696; J1940; J3480; J7030; J7040; J7050; J7060